=== PATIENT | female | born 1975 | race Caucasian/White ===

== ENCOUNTER 2017-12-11 13:33 | Emergency (ER) | payer MEDICARE, OTHER | END 2017-12-11 18:19 | disposition home or self-care (01) | LOC: FTE 13:33 | DX: M25.532 Pain in left wrist (principal) | CPT/HCPCS: 73110; 73110-LT; 99283-25 ==

== ENCOUNTER 2018-03-19 14:19 | Emergency (ER) | payer MEDICARE, OTHER | END 2018-03-19 15:34 | disposition home or self-care (01) | LOC: E/R 14:19 | DX: S89.92XA Unspecified injury of left lower leg, initial encounter (principal); X58.XXXA Exposure to other specified factors, initial encounter; Y92.9 Unspecified place or not applicable | CPT/HCPCS: 73562; 99283-25 ==

== ENCOUNTER 2019-02-12 14:45 | Emergency (ER) | payer MEDICARE, OTHER ==
[2019-02-12] MEDS: KETOROLAC 60 MG INJ IM (17:25)
[2019-02-12] MEDS: DEXAMETHASONE 10 MG/ML 1 ML INJ IM (17:26)
== END 2019-02-12 17:42 | disposition left against medical advice (07) ==
LOC: FTE 14:45
DX: M25.511 Pain in right shoulder (principal); J45.909 Unspecified asthma, uncomplicated
CPT/HCPCS: 99283; 99283-25